=== PATIENT | female | born 1990 | race Caucasian/White ===

== ENCOUNTER 2024-11-15 02:27 | Emergency (ER) | payer BC, OTHER ==
[~2024-11-15] VITALS: Ht 157.5 cm; Wt 56.7 kg
[~2024-11-15 02:27] MED LIST: CITA20TA19 PO; HYCOSAMINE PO; OMEP40CA21 PO
[2024-11-15] MEDS ORDERED: LORAZEPAM 2 MG/1 ML VIAL IV ONE (02:45)
[2024-11-15] MEDS ORDERED: ONDANSETRON 4 MG/2 ML VIAL ONE (02:48)
[2024-11-15] MEDS ORDERED: LORAZEPAM 2 MG/1 ML VIAL ONE (02:49)
[2024-11-15] MEDS: IV NORMAL SALINE 1000 ML BAG IV ONE (02:51)
[2024-11-15 02:55] LABS: *CLARITY,URINE CLEAR (CLEAR); *COLOR,URINE YELLOW (YELLOW); *KETONES,URINE NEGATIVE (NEGATIVE); *PROTEIN,URINE TRACE (NEGATIVE); *UROBILINOGEN,URINE 0.2 E.U./dl (NORMAL); LEUKOCYTE ESTERASE ,URINE NEGATIVE (NEGATIVE); NITRITE, URINE NEGATIVE (NEGATIVE); PH,URINE 5.5 (5.0-8.0); UGLUCOSE NEGATIVE (NEGATIVE)
[2024-11-15 02:56] LABS: BASOPHILS # (AUTO) 0.1 K/UL (0.0-0.2); BASOPHILS % (AUTO) 0.8 % (0.0-2.0); DIFFERENTIAL COMMENT 1; EOSINOPHILS # (AUTO) 0.9 K/uL (0.0-0.7); EOSINOPHILS % (AUTO) 6.9 % (0.0-7.0); HEMATOCRIT 40.4 % (31.2-41.9); HEMOGLOBIN 13.7 g/dL (10.9-14.3); LYMPHOCYTES # (AUTO) 2.6 K/uL (0.8-4.8); LYMPHOCYTES % (AUTO) 19.1 % (20.5-51.5); MEAN CORPUSCULAR HEMOGLOBIN 29.4 uug (24.7-32.8); MEAN CORPUSCULAR HGB CONC 34 g/dL (32.3-35.6); MEAN CORPUSCULAR VOLUME 86.7 fL (75.5-95.3); MONOCYTES # (AUTO) 0.6 K/uL (0.1-1.30); MONOCYTES % (AUTO) 4.5 % (0.0-11.0); NEUTROPHILS # (AUTO) 9.2 K/uL (1.8-8.9); NEUTROPHILS % (AUTO) 68.7 % (38.5-71.5); PLATELET COUNT (AUTO) 404 K/uL (179-408); RED BLOOD CELL COUNT(AUTO) 4.66 MIL/uL (3.63-4.92); RED CELL DISTRIBUTION WIDTH 14.3 % (12.3-17.7); WHITE BLOOD COUNT (AUTO) 13.4 K/uL (3.8-11.8)
[2024-11-15] MEDS: ONDANSETRON 4 MG/2 ML VIAL IV ONE (02:56)
[2024-11-15] MEDS: LORAZEPAM 2 MG/1 ML VIAL IV ONE (02:56)
[2024-11-15 02:58] LABS: *URINE HCG, QUAL NEGATIVE (NEGATIVE)
[2024-11-15 03:04] LABS: *BLOOD, URINE TRACE (NEGATIVE)
[2024-11-15 03:05] LABS: *BILIRUBIN,URIN 1+ (NEGATIVE)
[2024-11-15] MEDS ORDERED: LORA-259 PO (03:05)
[2024-11-15] MEDS ORDERED: PROC25SU3 RC (03:05)
[2024-11-15] MEDS ORDERED: DIPH25TA25 PO (03:05)
[2024-11-15 03:13] LABS: CALCIUM 9.6 mg/dL (8.5-10.1); CREATININE 0.9 mg/dL (0.6-1.3); POTASSIUM 3.8 mmol/L (3.5-5.1); RBC,URINE 0-3 /HPF (0-3)
[2024-11-15 03:14] LABS: BACTERIA,URINE FEW /HPF (NONE SEEN); SQUAMOUS EPITHELIAL CELL,UR MODERATE /HPF (NONE SEEN); WBC,URINE NONE SEEN /HPF (0-3)
[2024-11-15 03:19] LABS: ALBUMIN 4.5 g/dL (3.4-5.0); BILIRUBIN,DIRECT 0.2 mg/dL (0.0-0.2); BILIRUBIN,TOTAL 0.9 mg/dL (0.2-1.0); TOTAL PROTEIN, SERUM 8.4 g/dL (6.4-8.2)
[2024-11-15 03:44] VITALS: BP 119/73; TEMP 97.8; O2SAT 100
== END 2024-11-15 03:45 | disposition home or self-care (01) ==
LOC: ER 02:41
DX: R11.2 Nausea with vomiting, unspecified (principal); G89.29 Other chronic pain; F12.90 Cannabis use, unspecified, uncomplicated; R10.9 Unspecified abdominal pain; F41.0 Panic disorder [episodic paroxysmal anxiety]; Z79.899 Other long term (current) drug therapy; Z88.0 Allergy status to penicillin; Z60.2 Problems related to living alone
CPT/HCPCS: 99284; 96374; 96361; 96375; 80076; 80048; 81001; 84703; 83690; 85025; 36415; J2060; J2405; A4606; A4663

== ENCOUNTER 2025-07-27 09:57 | Emergency (ER) | payer BC ==
[~2025-07-27] VITALS: Ht 160 cm; Wt 53.1 kg
[~2025-07-27 09:57] MED LIST changes: +DIPH25TA25 PO; +LORA-259 PO; +PROC25SU3 RC
[2025-07-27 10:25] LABS: PLATELET COUNT (AUTO) 387 K/uL (179-408); RED BLOOD CELL COUNT(AUTO) 4.74 MIL/uL (3.63-4.92); RED CELL DISTRIBUTION WIDTH 13.3 % (12.3-17.7); WHITE BLOOD COUNT (AUTO) 7.1 K/uL (3.8-11.8)
[2025-07-27] MEDS ORDERED: METOCLOPRAMIDE HCL 10 MG/2 ML VIAL ONE (10:29)
[2025-07-27] MEDS ORDERED: diphenhydrAMINE 50 MG/1 ML VIAL ONE (10:29)
[2025-07-27 10:33] LABS: CREATININE 0.9 mg/dL (0.6-1.3); SODIUM SERUM 142.0 mmol/L (136-145); UREA NITROGEN, BLOOD 13.0 mg/dL (7-18)
[2025-07-27 10:38] LABS: ASPARTATE AMINOTRANSFERASE 12.0 U/L (15-37); TOTAL PROTEIN, SERUM 8.2 g/dL (6.4-8.2)
[2025-07-27] MEDS: diphenhydrAMINE 50 MG/1 ML VIAL IV ONE (10:39)
[2025-07-27] MEDS: METOCLOPRAMIDE HCL 10 MG/2 ML VIAL IV ONE (10:39)
[2025-07-27] MEDS: IV NORMAL SALINE 1000 ML BAG IV ONE (10:39)
[2025-07-27] MEDS ORDERED: ONDANSETRON 4 MG/2 ML VIAL ONE (10:58)
[2025-07-27] MEDS: ONDANSETRON 4 MG/2 ML VIAL IV ONE (11:01)
[2025-07-27 12:06] VITALS: BP 103/61
[2025-07-27] MEDS ORDERED: METO5TAB87 PO (12:08)
[2025-07-27] MEDS ORDERED: ONDA4TAB5 PO (12:08)
[2025-07-27 12:25] VITALS: BP 103/61; O2SAT 100
== END 2025-07-27 12:25 | disposition home or self-care (01) ==
LOC: ER 09:57
DX: R11.15 Cyclical vomiting syndrome unrelated to migraine (principal); F12.90 Cannabis use, unspecified, uncomplicated; F41.9 Anxiety disorder, unspecified; K31.84 Gastroparesis; K58.9 Irritable bowel syndrome, unspecified; Z79.899 Other long term (current) drug therapy; Z88.0 Allergy status to penicillin
CPT/HCPCS: 36415; 83690; 85025; A4606; A4663; J1200; J2405; J2765; J7040